=== PATIENT | male | born 1975 | race Caucasian/White ===

== ENCOUNTER 2016-06-10 02:43 | Emergency (ER) | payer SELFPAY ==
[2016-06-10 02:49] VITALS: BP 127/77
--- NOTE | 2016-06-10 03:48 | ER Document Report ---
ED GI Bleed / Rectal Pain - General Chief Complaint: Rectal Bleeding Stated Complaint: RECTUM BLEEDING Time seen by provider: 03:40 Notes: Patient is a 40-year-old male that comes emergency department for chief complaint of rectal bleeding. He states that he was at a bar tonight and when he got up from his seat he felt a wet sensation in his pants, he checked his underwear and noticed that he had had painless rectal bleeding. He denies any abdominal pain, unsure of hemorrhoid history, denies any injuries, denies any fever or chills, denies nausea or vomiting. He denies any dizziness. Denies any daily medications. Past medical history of inguinal hernia repair over 20 years ago. TRAVEL OUTSIDE OF THE [place] IN LAST 30 DAYS: No - Related Data Allergies/Adverse Reactions: No Known Allergies Allergy (Verified 05/19/12 12:07) Past Medical History - General Information source: Patient - Social History Smoking Status: Never Smoker Frequency of alcohol use: Social Drug Abuse: None Lives with: Family Family History: Reviewed & Not Pertinent Pulmonary Medical History: Reports: Hx Pneumonia Denies: Hx Asthma, Hx Bronchitis Past Surgical History: Reports: Hx Inguinal Hernia - two - Immunizations Hx Diphtheria, Pertussis, Tetanus Vaccination: Yes Review of Systems - Review of Systems Constitutional: No symptoms reported EENT: No symptoms reported Cardiovascular: No symptoms reported Respiratory: No symptoms reported Gastrointestinal: See HPI Genitourinary: No symptoms reported Male Genitourinary: No symptoms reported Musculoskeletal: No symptoms reported Skin: No symptoms reported Hematologic/Lymphatic: No symptoms reported Neurological/Psychological: No symptoms reported Physical Exam - Vital signs Vitals: Temp Pulse Resp BP Pulse Ox 97.9 F 76 15 127/77 H 98 06/10/16 02:46 06/10/16 02:46 06/10/16 02:46 06/10/16 02:46 06/10/16 02:46 Interpretation: Normal - General General appearance: Appears well, Alert In distress: None - HEENT Head: Normocephalic, Atraumatic Eyes: Normal Pupils: PERRL - Respiratory Respiratory status: No respiratory distress Chest status: Nontender Breath sounds: Normal Chest palpation: Normal - Cardiovascular Rhythm: Regular Heart sounds: Normal auscultation Murmur: No - Abdominal Inspection: Normal Distension: No distension Bowel sounds: Normal Tenderness: Nontender Organomegaly: No organomegaly - Rectal Hemorrhoids: Internal - There is an internal hemorrhoid at approximately 8 o' clock position, not swollen, no current bleeding, normal prostate, unremarkable rectal exam otherwise - Back Back: Normal, Nontender - Extremities General upper extremity: Normal inspection, Nontender, Normal color, Normal ROM , Normal temperature General lower extremity: Normal inspection, Nontender, Normal color, Normal ROM , Normal temperature, Normal weight bearing. No: Salas's sign - Neurological Neuro grossly intact: Yes Cognition: Normal Orientation: AAOx4 Feng Coma Scale Eye Opening: Spontaneous Feng Coma Scale Verbal: Oriented Rice Coma Scale Motor: Obeys Commands Feng Coma Scale Total: 15 Speech: Normal Motor strength normal: LUE, RUE, LLE, RLE Sensory: Normal - Psychological Associated symptoms: Normal affect, Normal mood - Skin Skin Temperature: Warm Skin Moisture: Dry Skin Color: Normal Course - Re-evaluation Re-evalutation: Patient has an internal hemorrhoid, no current bleeding, no tenderness, no fissure, soft abdomen. Rectal bleeding most likely from the internal hemorrhoid. Patient notes that he spends a large amount of time on the toilet, education provided on hemorrhoids, patient referred to primary care for additional evaluation if symptoms recur, advised return for any worsening symptoms. Patient states understanding and agreement. - Vital Signs Vital signs: Temp Pulse Resp BP Pulse Ox 97.9 F 76 19 127/77 H 99 06/10/16 02:48 06/10/16 02:48 06/10/16 02:48 06/10/16 02:48 06/10/16 02:48 Discharge - Discharge Clinical Impression: Rectal bleeding Condition: Stable Disposition: HOME, SELF-CARE Additional Instructions: Your examination is consistent with an internal hemorrhoid which bled, this appears to have stopped bleeding. Avoid straining or spending long amounts of time on the toilet. Symptoms of bleeding continue to occur please follow-up with primary care for additional evaluation and management. Return to emergency department for any concerning symptoms including dizziness, large amount of bleeding, abdominal pain, or any other concerning symptoms. Forms: Return to Work Referrals: [facility] [Provider Group] - Follow up as needed
== END 2016-06-10 03:52 | disposition home or self-care (01) ==
LOC: ER 02:43
DX: K62.5 Hemorrhage of anus and rectum (principal); K64.8 Other hemorrhoids
CPT/HCPCS: 99283

== ENCOUNTER 2018-05-30 02:07 | Emergency (ER) | payer SELFPAY ==
--- NOTE | 2018-05-30 02:30 | ER Document Report ---
ED General - General Chief Complaint: Rectal Bleeding Stated Complaint: RECTAL BLEEDING Time Seen by Provider: 05/30/18 02:22 Notes: Patient is a pleasant 42-year-old male who presents with complaint of bleeding from hemorrhoid. He has a history of hemorrhoids. He said today it ruptured and started bleeding heavily. He says he went to shower and continue to bleed and eventually it stopped when he got out of the shower. He says still has some tenderness in his rectal area. He says since the bleeding is felt nauseous and light. He is not any blood thinning medications. No abdominal pain. No other complaints at this time. TRAVEL OUTSIDE OF THE [place] IN LAST 30 DAYS: No - Related Data Allergies/Adverse Reactions: No Known Allergies Allergy (Verified 05/19/12 12:07) Past Medical History - Social History Smoking Status: Unknown if Ever Smoked Frequency of alcohol use: None Drug Abuse: None Family History: Reviewed & Not Pertinent Pulmonary Medical History: Reports: Hx Pneumonia Denies: Hx Asthma, Hx Bronchitis Past Surgical History: Reports: Hx Inguinal Hernia - two - Immunizations Hx Diphtheria, Pertussis, Tetanus Vaccination: Yes Review of Systems - Review of Systems Notes: My Normal Review Basic REVIEW OF SYSTEMS: CONSTITUTIONAL : Denies fever, chills, or sweats. Denies recent illness. GASTROINTESTINAL: Denies abdominal pain. Some nausea. No vomiting. Hemorrhoid with bleeding. HEMATOLOGIC : Denies easy bruising or bleeding. NEUROLOGICAL: Denies loss of consciousness. ALL OTHER SYSTEMS REVIEWED AND NEGATIVE. Physical Exam - Vital signs Vitals: Temp Pulse Resp BP Pulse Ox 98.1 F 82 16 138/90 H 99 05/30/18 02:12 05/30/18 02:12 05/30/18 02:12 05/30/18 02:12 05/30/18 02:12 - Notes Notes: General Appearance: Well nourished, alert, cooperative, no acute distress, mild obvious discomfort. Vitals: reviewed, See vital signs table. Eyes: Conjuctiva clear Abdomen: Normal BS, soft, No rigidity, No abdominal tenderness, No guarding, no rebound, Rectal: Patient has a hemorrhoid that appears to have been recently bleeding but is now clotted. He does have tenderness to palpation over the area. No redness or swelling around the rectum. No signs of infection. Extremities:good pulses in all extremities, no edema. Neuro: speech clear, oriented x 3, normal affect, responds appropriately to questions. Course - Vital Signs Vital signs: Temp Pulse Resp BP Pulse Ox 98.1 F 82 16 138/90 H 99 05/30/18 02:12 05/30/18 02:12 05/30/18 02:12 05/30/18 02:12 05/30/18 02:12 - Laboratory Result Diagrams: 05/30/18 02:30 Discharge - Discharge Clinical Impression: Rectal bleed Hemorrhoid Qualifiers: Hemorrhoid type: unspecified Qualified Code(s): K64.9 - Unspecified hemorrhoids Condition: Good Disposition: HOME, SELF-CARE Additional Instructions: You have a hemorrhoid that has been bleeding. Fortunately bleeding has stopped now. Do not hesitate to return to the ER if you have recurrent bleeding that is continuous for 30 minutes or more. Please use Tucks heorrhoidal pads. These can be bought [id number] at any drugstore. Please take a daily fiber supplement such as Metamucil. This will help keep your stool soft so that you do not have to bear down as much to have a bowel movement. Please consider using a flushable wet wipes that contains aloe to clean yourself after having a bowel movement. This will help reduce amount of irritation to hemorrhoid as opposed to using dry toilet paper which will irritate or inflame the hemorrhoid more. Please follow-up with the surgery clinic for reevaluation and further treatment options in regards to your hemorrhoids. The number for the surgery clinic is under the name, Rober Hagen, and your discharge paperwork. Forms: Return to Work Referrals: ROBER HAGEN MD [ACTIVE STAFF] - Follow up in 3-5 days (call office in the am to make a follow up appointment.)
[2018-05-30 02:45] LABS: HEMATOCRIT 41.4 % (37.9-51.0); HEMOGLOBIN 14.5 g/dL (13.5-17.0); MEAN CORPUSCULAR HEMOGLOBIN 33.1 pg (27.0-33.4); MEAN CORPUSCULAR VOLUME 94 fl (80-97); PLATELET COUNT 228 10^3/uL (150-450); RED BLOOD COUNT 4.38 10^6/uL (4.35-5.55); RED CELL DISTRIBUTION WIDTH 12.5 % (11.5-14.0); WHITE BLOOD COUNT 6.3 10^3/uL (4.0-10.5)
[2018-05-30 04:06] VITALS: BP 121/79
== END 2018-05-30 04:06 | disposition home or self-care (01) ==
LOC: ER 02:07
DX: K64.9 Unspecified hemorrhoids (principal); K62.5 Hemorrhage of anus and rectum; R11.0 Nausea
CPT/HCPCS: 36415; 85027; 99283